=== PATIENT | female | born 1950 | race Caucasian/White ===

== ENCOUNTER 2016-04-30 14:49 | Inpatient (IN) | payer MEDICARE ==
--- NOTE | ~2016-04-30 | CN ---
Consultation Report [facility] [address] [place]. [address] NAME: WILFRED MENDOZA : 50 STATUS : ADM IN [facility]#: [id number] AGE: 65 ADM/REG DATE : 04/30/16 MR#: [id number] REPORT SERV DATE: 05/02/16 DICTATED BY: LANDEN LAGUNAS DATE: 05/02/16 REPORT STATUS : Draft TRANSCRIBED BY: MODL DATE: 05/02/16 CONSULTATION DATE OF CONSULTATION: 05/02/2016 CONSULTING GROUP: [facility]. SUBJECTIVE/CHIEF COMPLAINT: Hyperkalemia, PEA code 6:22 a.m., moved from IMCU to MICU in critical condition. HISTORY OF PRESENT ILLNESS: Ms. Mendoza is a 65-year-old female with worsening medical status starting from today, was admitted on 04/30/2016 and since that time, has developed bilateral infiltrates, had urine culture with greater than 100,000 gram-negative bacilli and then acute hyperkalemia, lactic acidosis, and cardiopulmonary arrest this morning at 6:22 a.m. Within the code, the patient received 5 epinephrine, 2 atropine, and two times bicarb and was also given insulin, D50, and calcium gluconate. Dr. Deshpande consulted me this morning for cardiopulmonary arrest, lactic acidosis, hyperkalemia management. The patient was made DNR with no escalation of care, but currently, she is ventilated and she is on Levophed and Dobutrex drips. An echocardiogram done today showed an EF of roughly 20%. Israel is in place, but there is no urine. I spoke with family at the bedside about her poor prognosis. Her pH on the latest blood gas was 6.95. Lactic acid level 17.8 and potassium 6.7, but we will have repeat labs done momentarily. PAST MEDICAL HISTORY: Crohn disease, status post AVR and MVR, hypertension, coronary artery disease, ischemic cardiomyopathy, COPD, and asthma. FAMILY HISTORY: Positive for diabetes, hypertension, coronary artery disease. SOCIAL HISTORY: Lives in [place]. A 45-[id number]-fnyq smoker. No alcohol use. REVIEW OF SYSTEMS: Positive for nausea and vomiting x1 week. Poor p.o. intake. EF of 20%. Unable to obtain further as the patient is obtunded. OBJECTIVE/PHYSICAL EXAMINATION: VITAL SIGNS: Temperature 97.3, pulse of 133, blood pressure 96/59. Intake 3300 and output 600, which is urine, but I think now she is making 0-10 mL. CMV ventilator settings with FiO2 of 100. GENERAL: Obtunded, critically ill. Minimal pain responses. EYES: Closed eyes. No conjunctivitis. ENT: Intubated. No facial droop. LYMPH: Large soft tissue mass in right neck area. No lymphadenopathy. SKIN: No rash or lesions. HEART: S1 and S2. Tachycardic. Decreased edema. LUNGS: Ventilated. Positive rhonchi. Consultation Report [address] [place]. [address] NAME: WILFRED MENDOZA : 50 STATUS : ADM IN [facility]#: [id number] AGE: 65 ADM/REG DATE : 04/30/16 MR#: [id number] REPORT SERV DATE: 05/02/16 DICTATED BY: LANDEN LAGUNAS DATE: 05/02/16 REPORT STATUS : Draft TRANSCRIBED BY: MODTraci DATE: 05/02/16 ABDOMEN: Soft and nontender. No bowel sounds. EXTREMITIES AND PSYCH: Sedated, obtunded, ventilated, critically ill. Israel with 0-10 mL of urine, dark colored. LABORATORY DATA: KUB showed NG tube in proper position. Chest x-ray shows diffuse bilateral infiltrates, right greater than left. CT abdomen and pelvis without contrast shows small right pleural effusion and potential acute colitis. ABG, pH is 6.95, pCO2 is 32, PO2 is 72, bicarbonate 6.9, 80% O2 saturation on FiO2 of 100. Cortisol 142.9. Troponin I 0.48. Ammonia 62. Procalcitonin 0.5. Lactic acid level 17.8. Sodium 134, potassium 6.7, chloride 95, bicarb 14, BUN 41, creatinine 1.17, glucose 70, calcium 8.0, magnesium 2.5, phosphorus 6.0. On arrival, her creatinine was 0.85. Albumin 2.2, T bilirubin 2.5, alkaline phosphatase 125, ALT 978, LDH 742, lipase 373, CPK 366, AST 1392. White count 9.5, hemoglobin 8.7, hematocrit 29.0, and platelets 113. On 04/30, her UA showed specific gravity of 1.019, pH of 5.0, 30 protein, 4.0 urobilinogen, moderate blood, moderate leukocytes, all else negative. ASSESSMENT AND PLAN: Ms. Mendoza is a 65-year-old female with gram-negative rods on urine culture yesterday, now appears in septic shock with combined cardiogenic shock. Her EF is only 20%. She has had history of ischemic cardiomyopathy. She had a PEA cardiopulmonary arrest today, most likely due to hyperkalemia, but could be some sepsis related. Lactic acidosis and respiratory arrest. Renal: The patient was treated for hyperkalemia medically. Bicarbonate x2 was given for acidosis. I agree with the current code status, which is DNR. No escalation of care. Treat with antibiotics, probably vancomycin and Zosyn at renal dose. Ventilator dependent, requiring pressors. She has a poor prognosis and family is aware of that. I spoke with Dr. Deshpande and will defer all current management and acute management to her. She is not a dialysis candidate, and repeat blood gas and labs will be obtained shortly. RG/MODL Landen Lagunas M.D. / [id number] CC: Araceli Avelar M.D.
--- NOTE | ~2016-04-30 | CN ---
Consultation Report [place] [address] [place]. [address] NAME: WILFRED MENDOZA : 50 STATUS : ADM IN PAT#: [id number] AGE: 65 ADM/REG DATE : 04/30/16 MR#: [id number] REPORT SERV DATE: 05/02/16 DICTATED BY: YOBANY SHELBY IV DATE: 05/02/16 REPORT STATUS : Draft TRANSCRIBED BY: AUGUSTO DATE: 05/02/16 DATE OF CONSULTATION: ADDENDUM: Critical care time seen is 0700 hours to 0830 hours and this does not include time for the code, intubation or central line placement. SHELBY/AUGUSTO Yobany Shelby IV, M.D. / [id number] CC: Araceli Avelar M.D.
--- NOTE | ~2016-04-30 | HP ---
History And Physical [place] [id number] [facility] [place]. [address] NAME: WILFRED MENDOZA : 50 STATUS : ADM IN [facility]#: [id number] AGE: 65 ADM/REG DATE : 04/30/16 MR#: [id number] REPORT SERV DATE: 05/01/16 DICTATED BY: LEROY CROSS DATE: 04/30/16 REPORT STATUS : Draft TRANSCRIBED BY: MODTraci DATE: 04/30/16 DATE OF ADMISSION: 04/30/2016 CHIEF COMPLAINT: Nausea and vomiting x1 week. HISTORY OF PRESENT ILLNESS: A 65-year-old white female with past medical history of Crohn disease, status post aortic valve and mitral valve replacement, on Coumadin and hypertension, presenting with nausea and vomiting x1 week. The patient states that she initially had nausea and vomiting about two episodes per day. The patient thought she had flu and decided not to come in initially. However, the patient continued to have nausea and vomiting x1 week to the point that she came to the ER for further evaluation and treatment. The patient denies any fevers and chills, chest pain, or shortness of breath. She does complain of the nausea and vomiting, but denies any hematemesis or hemoptysis. In addition, the patient denies any constipation or diarrhea as well as abdominal pain. In addition, the patient has not been able to take her medications for about one week due to nausea and vomiting. In addition, the patient denies taking her pain medications, although she tried to attempt to take pain med, but she unfortunately had continued nausea and vomiting. PAST MEDICAL HISTORY: As above. MEDICATION: 1. Coreg 6.25 mg p.o. b.i.d. 2. Celexa 10 mg p.o. at bedtime. 3. Plavix 75 mg p.o. daily. 4. Nexium 20 mg p.o. daily. 5. Lasix 10 mg p.o. daily. 6. Imdur 30 mg p.o. daily. 7. Nitroglycerin sublingual p.r.n. 8. Zofran 8 mg p.o. q.6 hours p.r.n. 9. Oxycodone 10/325 p.o. q.6 hours. 10.Afrin nasal spray two to three sprays every 12 hours p.r.n. 11.Potassium 10 mEq daily. 12.Coumadin 2 mg p.o. at bedtime. ALLERGIES: PROPOXYPHENE, TRAMADOL, AND KETOROLAC. SOCIAL HISTORY: Active smoker. Nondrinker. FAMILY HISTORY: Significant for diabetes, hypertension, coronary artery disease. REVIEW OF SYSTEMS: A 10-point review of systems conducted, which were negative except for above complaints. PHYSICAL EXAMINATION: VITAL SIGNS: Temperature of 98, pulse 84, respiratory rate 17, blood pressure 100/55, O2 saturation 99% on room air. History And Physical [address] [address] NAME: WILFRED MENDOZA : 50 STATUS : ADM IN [facility]#: [id number] AGE: 65 ADM/REG DATE : 04/30/16 MR#: [id number] REPORT SERV DATE: 05/01/16 DICTATED BY: LEROY CROSS DATE: 04/30/16 REPORT STATUS : Draft TRANSCRIBED BY: AUGUSTO DATE: 04/30/16 HEAD AND NECK: Normocephalic, atraumatic. Jaundiced-appearing pupils. CARDIOVASCULAR: S1, S2. Regular rate and rhythm. LUNGS: Good air entry. No wheeze, rales, or rhonchi. ABDOMEN: Soft, nontender, nondistended. EXTREMITIES: No clubbing, cyanosis, or edema. NEUROLOGICAL: Awake, alert, and oriented x3. Cranial nerves II through XII grossly intact. LABORATORY DATA: Sodium 120, potassium 5.1, chloride 89, bicarb 24, BUN 53, creatinine 1.1, glucose 107, and calcium 9.3. Total protein 8.4, albumin 3.7, globulin 4.7, total bilirubin 3.3. Alkaline phosphatase 150, ALT 1602, AST 1809. Lipase 373. WBC 9.5, hemoglobin 9.5, hematocrit 37.4, platelets 178. CT of the abdomen and pelvis shows small bilateral pleural effusion with bibasilar airspace consolidation concerning for pneumonia versus atelectasis. No evidence of biliary GI tract obstruction. Mild pelvic ascites and generalized body wall edema. Increased subcutaneous fat within the solorzano of the right colon and transverse colon, which may be due to prior inflammatory bowel disease. Rectum and sigmoid are decompressed. Potential acute cholelithiasis cannot be well evaluated through the distal colon. ASSESSMENT AND PLAN: 1. Nausea and vomiting secondary to unknown etiology. Due the fact that the patient has painless jaundice, rule out carcinoma. We will check also Tylenol, aspirin, and UDS. Also, we will order hepatitis panel due to the elevated ALT and AST. Questionable if the patient's elevated liver enzymes causing nausea vomiting. 2. Hyponatremia. Start the patient on normal saline at 80 mL an hour. 3. Aortic valve replacement and mitral valve replacement. The patient currently is on Coumadin. We will check PT and INR. We will have pharmacy to adjust dose. 4. Coronary artery disease. We will also check cardiac enzymes. The patient denies any chest pain, but due to the patient's history of coronary artery disease, we will check cardiac enzymes. 5. Gastrointestinal and deep venous thrombosis prophylaxis. We are going to check Coumadin levels as well as continue Nexium. FBJ/MODL Leroy Cross MD / [id number] CC: Ashu Falk
--- NOTE | ~2016-04-30 | DS ---
Discharge Summary [place] [address] [facility] [place] [address] NAME: WILFRED MENDOZA : 50 STATUS : ADM IN PAT#: [id number] AGE: 65 ADM/REG DATE : 04/30/16 MR#: [id number] REPORT SERV DATE: 05/02/16 DICTATED BY: KRYSTIAN DESHPANDE DATE: 05/02/16 REPORT STATUS : Draft TRANSCRIBED BY: MODL DATE: 05/02/16 ADMISSION DATE: 04/30/2016 DISCHARGE DATE: ADDENDUM: Correction is to a discharge summary I just did about 5 minutes ago on 05/02/2016 on this patient and that her time of needs to be corrected from 1250 hours to 1700 hours. Otherwise, everything else is the same. /AUGUSTO Krystian Deshpande M.D. / [id number] CC: Araceli Avelar M.D.
--- NOTE | ~2016-04-30 | CN ---
Consultation Report [facility] [address] [place]. [address] NAME: WILFRED MENDOZA : 50 STATUS : DIS IN PAT#: [id number] AGE: 65 ADM/REG DATE : 04/30/16 MR#: [id number] REPORT SERV DATE: 05/03/16 DICTATED BY: APOORVA SWANSON DATE: 05/01/16 REPORT STATUS : Draft TRANSCRIBED BY: MODTraci DATE: 05/01/16 CARDIOLOGY CONSULTATION DATE OF CONSULTATION: INDICATION: Elevated troponin, possible sepsis with hypotension, and elevated transaminases, underlying mechanical aortic valve on chronic Coumadin therapy. HISTORY: The patient is a 65-year-old white female, who had been in her usual health until three to four weeks ago. Prior to that time, her sister states a girlfriend of her son's, who is living in the same facility developed a gastroenteritis with nausea and vomiting. Four weeks ago, the patient began to experience anorexia. She was unable to take her medications. She began to experience nausea with vomiting occurring once or twice a week, increasing recently. She also over the past week has had increasing diarrhea. Her sister states, there have been times when she has profound abdominal discomfort causing her to bend over in pain. The evening prior to admission, she tried to take her evening medications with a bit of food. Around 11:30 p.m., she had profound nausea with vomiting. She presented to the emergency room for further evaluation. Her sister states, she has had no overt fever or chills. She has become more lethargic over the past two to three days. CURRENT HOME MEDICATIONS: Carvedilol 6.25 b.i.d., citalopram 10 per day, clopidogrel 75 q.a.m., omeprazole 20 q.a.m., furosemide 10 mg tablets two each morning, isosorbide mononitrate 30 mg q.a.m., nitroglycerin 0.4 p.r.n., ondansetron 8 mg q.6h p.r.n., oxycodone 10/325 p.o. four times a day, oxymetazoline spray, potassium, and warfarin as directed. ALLERGIES OR INTOLERANCES: Propoxyphene, tramadol, ketorolac. SOCIAL HISTORY: She is an active smoker. Does not ingest ethanol containing beverages. FAMILY HISTORY: She has a sister with diabetes mellitus. Father suddenly at age 51. Mother at age of 85 and had a history of hypertension with cardiac arrhythmias. Positive for diabetes, hypertension, coronary artery disease (she has a sister who has had MA, dyslipidemia, and cardiac arrhythmias). PAST MEDICAL HISTORY/REVIEW OF SYSTEMS: She has a history of an MA, 03/31/2003 with BMS x2 to the mid and distal LAD. She underwent 4-vessel CABG on 09/16/2011 and at that time, had a [place] E mechanical aortic valve placed. She is on warfarin therapy. She has a mixed hyperlipidemia as well as chronic anemia and a history of GERD. She underwent a KIARA on 01/28/2016 after a transthoracic echo suggested prosthetic valve stenosis. The KIARA showed a mean gradient of 15 mmHg, which is at the upper limits of normal for mechanical aortic prosthesis. She also has a mitral valve annuloplasty with stable ring confirmed. there was mild residual mitral regurgitation with a mean transmitral gradient of 3 mmHg. Pulmonary and tricuspid valves were normal. There was no evidence of intra-atrial shunt. The ascending aorta was normal in caliber. Overall, it was felt that the prosthetic valves Consultation Report [facility] [address] [facility] [place]. [address] NAME: WILFRED MENDOZA : 50 STATUS : DIS IN PAT#: [id number] AGE: 65 ADM/REG DATE : 04/30/16 MR#: [id number] REPORT SERV DATE: 05/03/16 DICTATED BY: APOORVA SWANSON DATE: 05/01/16 REPORT STATUS : Draft TRANSCRIBED BY: AUGUSTO DATE: 05/01/16 and valve repair function was reasonable. She did have a decreased LV systolic function with EF estimated at 40%. PHYSICAL EXAMINATION: GENERAL: Lethargic, ill-appearing 65-year-old white female. VITAL SIGNS: Blood pressure at 08:00 a.m., 100/72, pulse 87 and regular, respirations 19. SKIN: She has a slight icterus with a sallow appearance. HEENT: She is normocephalic. JVD is not elevated. CHEST: There are no overt crackles. CARDIAC: S1 normal, S2 crisp. There is a 2/6 systolic ejection murmur transmitted to the base and 1/6 holosystolic murmur transmitted to the axilla. ABDOMEN: Soft. Bowel sounds positive. EXTREMITIES: With trace edema. Pulses +1 and symmetric. NEUROLOGIC: No focal deficits. MUSCULOSKELETAL: No kyphosis. LABORATORY DATA: Potassium 5.6, BUN 55, creatinine of 0.94. ALT 1123, AST 1303, LDH 954, CPK 302. Troponins 0.12, bilirubin 3.2. White count of 10.3, hemoglobin 8.9, platelets 134,000. INR 2.6. IMPRESSION: A 65-year-old white female, with evidence for moderate systolic dysfunction, slight troponin elevation, likely related to increased metabolic demands, elevated transaminases, which may reflect a recent and ongoing infection. Clinically, she appears dehydrated, although hydration will have to be gentle given her decreased LV systolic function. She has a periprosthetic valve. We will mandate continued anticoagulation therapy if at all possible. We will continue to follow her with you, see recommendations. Note: There is no evidence for pancreatic abnormalities or overt liver abnormalities on the CT scan from 04/30/2016. MRI is pending. MARLEY/AUGUSTO Apoorva Swanson M.D. / [id number] CC: Consultation Report [address] [place]. [address] NAME: WILFRED MENDOZA : 50 STATUS : DIS IN PAT#: [id number] AGE: 65 ADM/REG DATE : 04/30/16 MR#: [id number] REPORT SERV DATE: 05/03/16 DICTATED BY: APOORVA SWANSON DATE: 05/01/16 REPORT STATUS : Draft TRANSCRIBED BY: AUGUSTO DATE: 05/01/16 Araceli Avelar M.D. [facility]
--- NOTE | ~2016-04-30 | CN ---
Consultation Report [facility] [address] [place]. [address] NAME: JESSIKA MENDOZA : 50 STATUS : ADM IN PAT#: [id number] AGE: 65 ADM/REG DATE : 04/30/16 MR#: [id number] REPORT SERV DATE: 05/01/16 DICTATED BY: CORNELIA STEEL DATE: 05/01/16 REPORT STATUS : Draft TRANSCRIBED BY: MODL DATE: 05/01/16 CONSULTATION DATE OF CONSULTATION: HISTORY OF PRESENT ILLNESS: Jessika Mendoza is a 65-year-old female, whom we are seeing private unattached for evaluation of elevated liver enzymes and nausea. This patient presents with nausea and vomiting for seven days. She denies any current abdominal pain. The history and physical states that she has a history of Crohn disease, but the patient denies Crohn disease. In fact, she denies any history of colonoscopy or EGD. The patient is rather lethargic now, so it is difficult to get history. I reviewed the chart as well as [facility]. The patient has had elevated liver enzymes and we were asked to see her. There is no prior history of liver disease. There is no history of any alcohol usage. PAST SURGICAL HISTORY: Aortic valve replacement, mitral valve replacement, coronary artery bypass grafting, left total hip replacement, partial hysterectomy, cholecystectomy, coronary artery disease with stents. SOCIAL HISTORY: She does smoke. She does not drink. OUTPATIENT MEDICATIONS: Coreg, Celexa, Plavix, Nexium 20 mg daily, Lasix, Imdur, Nitrostat, Zofran, Endocet, Afrin, potassium, Coumadin. ALLERGIES: TRAMADOL, TORADOL, PROPOXYPHENE. FAMILY HISTORY: Noncontributory. REVIEW OF SYSTEMS: Negative except noted as above. PHYSICAL EXAMINATION: GENERAL: She was oriented x4, in no acute distress, but lethargic. VITAL SIGNS: She is afebrile. Pulse is . HEENT: There is no scleral icterus. LUNGS: Clear. CARDIOVASCULAR: Revealed no S3, S4. No murmurs. ABDOMEN: Revealed active bowel sounds. Soft, nontender. No mass or organomegaly. LABORATORY DATA: White blood cell count 10,300, hemoglobin 8.9, platelet count 134,000. MCV 76. Potassium 5.6. Total bilirubin was 3.3 yesterday, it is 3.2 today. Alkaline phosphatase 150. ALT yesterday was 1602, is 1123 today. AST was 1809 yesterday, it is 1303 today. Iron percent pending. Hepatitis A, B, C pending. Ammonia level is slightly up at 36. INR was 15. Consultation Report [address] [place]. [address] NAME: JESSIKA MENDOZA : 50 STATUS : ADM IN PAT#: [id number] AGE: 65 ADM/REG DATE : 04/30/16 MR#: [id number] REPORT SERV DATE: 05/01/16 DICTATED BY: CORNELIA STEEL DATE: 05/01/16 REPORT STATUS : Draft TRANSCRIBED BY: AUGUSTO DATE: 05/01/16 CT scan without contrast shows no gallbladder, shows normal liver. There was increased submucosal fat around the terminal ileum and ascending colon. IMPRESSION: 1. Nausea, vomiting, diarrhea, consistent with gastroenteritis. 2. Dehydration. 3. Elevated liver enzymes, which are now decreasing. These could be due to some hypertension during her illness with some liver injury. 4. Elevated INR secondary to Coumadin, I doubt sepsis but it could also be due to some liver dysfunction. 5. Abnormal right colon on CT scan. 6. Microcytic anemia. RECOMMENDATION: 1. For now hydrate and follow liver enzymes as well as ammonia. 2. At some point, she will need a colonoscopy. 3. Check iron studies. Thanks for allowing us to assist in her care. ADDENDUM: 35 minutes were spent in evaluation of this patient. FABIÁN/AUGUSTO Cornelia Steel M.D. / [id number] CC: Ashu Falk LESLIE
--- NOTE | ~2016-04-30 | OP ---
[place] Of [place] [address] [place]. [address] NAME: WILFRED MENDOZA ARIC : 50 STATUS : ADM IN PAT#: [id number] AGE: 65 ADM/REG DATE : 04/30/16 MR#: [id number] REPORT SERV DATE: 05/02/16 DICTATED BY: YOBANY SHELBY IV DATE: 05/02/16 REPORT STATUS : Draft TRANSCRIBED BY: MODL DATE: 05/02/16 DATE OF PROCEDURE: 05/02/2016 REPORT TITLE: Laryngoscopic Intubation Note BODY AFTER REPORT TITLE: REASON: Cardiac arrest with inadequate respiratory effort after resuscitation. POSTOPERATIVE DIAGNOSIS: Cardiac arrest with inadequate respiratory effort after resuscitation. PROCEDURE: Laryngoscopic intubation, ventilator setup, and placement of orogastric tube. INDICATIONS: Status post cardiac arrest with inadequate respiratory effort. COMPLICATIONS: None. CONSENT: No consent was obtained as it is a life-saving procedure and the patient is a full code. PREOPERATIVE LABORATORIES: The platelet count was [id number]. GLASS CUT OFF TENDER: Yobany Shelby M.D. METHOD: The patient was flat in the bed and brought to the head of the bed. CPR had been in progress. She was Ambu bag ventilated during this period of time. After she was resuscitated, the patient continued to have poor inspiratory effort. Using a curved laryngoscopic blade, vocal cords were easily visualized. A 7.5 endotracheal tube was advanced on the first pass through the cords. There was appropriate color change on the CO2 indicator with bilateral breath sounds. The tube was secured. The patient had another short arrest and the tube was used during that resuscitation. There was good positioning on the chest x-ray which demonstrated right greater than left pulmonary infiltrates. VENTILATOR SETTINGS: CMV, tidal volume of 450 mL, rate of 14, PEEP of 5, FiO2 of 100%. There was no blood loss for that procedure. SHELBY/AUGUSTO Yobany Shelby IV, M.D. / [id number] [place] Of [place] [address] [place] [address] NAME: TOSIN MENDOZAENA CORBETT : 50 STATUS : ADM IN PAT#: [id number] AGE: 65 ADM/REG DATE : 04/30/16 MR#: [id number] REPORT SERV DATE: 05/02/16 DICTATED BY: YOBANY SHELBY IV DATE: 05/02/16 REPORT STATUS : Draft TRANSCRIBED BY: AUGUSTO DATE: 05/02/16 CC: Araceli Avelar M.D.
--- NOTE | ~2016-04-30 | CN ---
Consultation Report [facility] [address] [place]. [address] NAME: WILFRED MENDOZA : 50 STATUS : ADM IN [facility]#: [id number] AGE: 65 ADM/REG DATE : 04/30/16 MR#: [id number] REPORT SERV DATE: 05/02/16 DICTATED BY: YOBANY SHELBY IV DATE: 05/02/16 REPORT STATUS : Draft TRANSCRIBED BY: MODTraci DATE: 05/02/16 CRITICAL CARE CONSULT AND TRANSFER SERVICES DATE OF CONSULTATION: 05/02/2016 The patient was seen as part of a cardiac arrest. She is now status post resuscitation, intubation, and placement of a femoral line. History is obtained from the records and talking to the nurse. Ms. Mendoza is a 65-year-old female with a history of Crohn disease, tobacco dependency, valvular heart disease, hypertension, depression, coronary artery disease, and ischemic cardiomyopathy, who is now status post PEA arrest on the mechanical ventilator and requiring pressors. The patient was admitted on 04/30/2016 with nausea and vomiting for one week. Subsequently, Cardiology and Gastroenterology were both consulted. She was empirically placed on Levaquin and Flagyl. She had a marked coagulopathy with her Coumadin, which was on hold. She was being given oral vitamin K. The patient reportedly was slightly agitated and listless yesterday. She had marginal blood pressures overnight for which she received two 500 mL boluses of fluid. There were no complaints of chest pain either retrosternal or pleuritic. No abdominal pain. Then, the patient became more restless and the nurse was helping her up in bed when she became unresponsive. A code was called. Upon arrival, CPR was in progress. The patient had PEA arrest for which she was resuscitated after two rounds of medications. The patient was awaken enough to push us away and currently is in the intensive care unit. There is no witnessed aspiration. Her current studies are as noted below. PULMONARY HISTORY: Remarkable for no documented history of asthma, COPD, or previous pneumonia. She is an ongoing smoker by report a pack a day, which likely puts her about a [id number] smoking history. Her immunization status is not documented. PAST MEDICAL HISTORY: 1. Crohn disease. 2. Tobacco dependency. 3. Valvular heart disease, both aortic and mitral, status post replacement. 4. Hypertension. 5. Depression. 6. Coronary artery disease, status post stents. 7. Ischemic cardiomyopathy with a previous ejection fraction of 40%. The patient during this hospitalization also has coagulopathy, thrombocytopenia, and had significant elevations in her liver functions. PAST SURGICAL HISTORY: Includes cataract surgery, mitral and aortic valve replacement, partial hysterectomy, left total hip, and cardiac stents. ALLERGIES: LISTED ARE PROPOXYPHENE, TRAMADOL, AND KETOROLAC. MEDICATIONS: Celexa 10 mg daily, Coreg 6.25 mg twice a day, Coumadin per Pharmacy, Imdur 30 mg daily, Levaquin 750 mg daily, Flagyl 500 mg daily, Plavix 75 mg daily, Protonix 40 mg IV Consultation Report [address] [place]. [address] NAME: WILFRED MENDOZA : 50 STATUS : ADM IN [facility]#: [id number] AGE: 65 ADM/REG DATE : 04/30/16 MR#: [id number] REPORT SERV DATE: 05/02/16 DICTATED BY: YOBANY SHELBY IV DATE: 05/02/16 REPORT STATUS : Draft TRANSCRIBED BY: AUGUSTO DATE: 05/02/16 daily, and vitamin K. SOCIAL HISTORY: Remarkable for the tobacco use as above. There are no reports of alcohol or illicit drug use. FAMILY HISTORY: Remarkable for diabetes, hypertension, and coronary artery disease. REVIEW OF SYSTEMS: 14-systems reviewed and pertinent positives as noted above. PHYSICAL EXAMINATION: GENERAL: This is a chronically ill-appearing, thin female, appearing much older than her stated age. Currently not responsive. VITAL SIGNS: Temperature is 96.4, pulse is 134, respiratory rate is 16, saturations are 96% on the mechanical ventilator, and blood pressure is 90/52. HEENT: The patient is normocephalic, atraumatic. Pupils are dilated; however, she received atropine. There is no drainage from either nasal passages. She has upper dentures removed at time of her intubation. She has an orotracheal and orogastric tube in position. NECK: Without any palpable lymphadenopathy or thyromegaly. CHEST: The patient has inspiratory and expiratory rhonchi, right greater than left, with a prolonged expiratory phase. She also has a sternotomy scar over her chest. HEART: She has a distant tachycardic S1, S2 with no clear murmur or S3. Peripheral pulses are diminished. ABDOMEN: Soft. There are hypoactive bowel sounds. There is no palpable hepatosplenomegaly or masses. EXTREMITIES: Demonstrate no cyanosis, clubbing, or palpable cords. NEUROLOGIC: The patient was moving and extremities, currently is minimally responsive to even noxious stimuli. LABORATORY DATA: Chest x-ray demonstrates endotracheal tube and gastric tube in good position. There is increased infiltrate in the right greater than left lung. CBC: Hemoglobin 8.7, hematocrit 29.6, platelet count 113,000, white count is 9.5, indices are low. INR is 12.9, PTT is 50.2. Chemistry: Sodium is 134, potassium 6.7, chloride 95, bicarb 14, BUN 41, creatinine 1.17, glucose of 70. Bilirubin is now 2, alkaline phosphatase 125, ALT is 978, and AST is 1392. Troponin is 0.48 and a TSH is normal. Opiates were positive on presentation. ASSESSMENT AND PLAN: 1. Respiratory failure. The patient may have a component of underlying chronic obstructive pulmonary disease for she was given Dulera 5 puffs twice a day and DuoNebs. Ventilator settings were CMV, tidal volume of 450 mL, rate of 14, PEEP of 5, FiO2 of 100%. Blood gas will be obtained in 30 minutes and tomorrow. Chest x-ray will be obtained daily. 2. Infectious disease. The patient has increased infiltrates, possibly with aspiration. Consultation Report [address] [place]. [address] NAME: WILFRED MENDOZA : 50 STATUS : ADM IN [facility]#: [id number] AGE: 65 ADM/REG DATE : 04/30/16 MR#: [id number] REPORT SERV DATE: 05/02/16 DICTATED BY: YOBANY SHELBY IV DATE: 05/02/16 REPORT STATUS : Draft TRANSCRIBED BY: MODL DATE: 05/02/16 Flagyl and Levaquin will be discontinued. She will be started on Zosyn and vancomycin per Pharmacy. Further management depending on outcomes of the cultures. Urine antigen will be sent for Pneumococcus and Legionella. 3. Renal/electrolytes. The patient has acute acidosis. Bicarb drip has been ordered. We will repeat K this afternoon with improvement of the acidemia, and the patient will be given a dose of Kayexalate. 4. Neurologic. Habitrol patch for tobacco dependency. I do not think the patient is a hypothermia candidate secondary to her multiorgan dysfunction, her hemodynamic instability, and her coagulopathy. She will be given propofol as needed. B12 and folate level be obtained. 5. Endocrinologic. Steroids will be provided. Insulin sliding scale if required. 6. Gastrointestinal. The patient appears to have a shock liver. GI is following. Protonix will be continued. Hepatitis panel is pending. NG to low intermittent suction. 7. Cardiovascular. The patient had EKG changes with some J-point elevation. I have made Cardiology aware of this. She will be given Levophed and Klonopin. We need the echocardiogram that was performed yesterday. 8. Hematologic. FFP x4 doses. Bumex between the doses. No Coumadin. Pneumatic compression stockings for deep vein thrombosis prophylaxis. The patient was then moved to the ICU. The patient is in critical state. The daughter was made aware of her decompensation. SHELBY/ERNESTINAL Yobany Shelby IV, M.D. / [id number] CC: Araceli Avelar M.D.
--- NOTE | ~2016-04-30 | DS ---
Discharge Summary [facility] [address] [place]. [address] NAME: WILFRED MENDOZA : 50 STATUS : ADM IN [facility]#: [id number] AGE: 65 ADM/REG DATE : 04/30/16 MR#: [id number] REPORT SERV DATE: 05/02/16 DICTATED BY: KRYSTIAN DESHPANDE DATE: 05/02/16 REPORT STATUS : Draft TRANSCRIBED BY: MODL DATE: 05/02/16 ADMISSION DATE: 04/30/2016 DISCHARGE DATE: 05/02/2016 SUMMARY DATE OF : 05/02/2016. ADMISSION DIAGNOSES: 1. Nausea and vomiting secondary to unknown etiology. 2. Hyponatremia. 3. History of aortic valve replacement and mitral valve replacement. 4. Coronary artery disease. DISCHARGE DIAGNOSES: In addition to the above, 1. Ischemic cardiomyopathy. 2. Crohn disease. 3. Tobacco dependency. 4. Valvular heart disease, status post aortic and mitral valve replacement. 5. Pulseless electrical activity arrest. 6. Cardiogenic shock. 7. Acute kidney injury. 8. Coumadin toxicity. 9. Lactic acidosis. 10.Possible ischemic bowel. 11.Hyperkalemia, resolved. 12.Metabolic acidosis. HOSPITAL COURSE: This was a 65-year-old patient, who was initially admitted to the Hospitalist Service on 04/30/2016 with a chief complaint of nausea and vomiting of uncertain etiology. She was also seen by Dr. Steel of Gastroenterology because of elevated liver enzymes as well as elevated ammonia level. Colonoscopy was being plan once the patient stabilized and infection was ruled. On the morning of 05/02/2016, the patient went into PEA arrest. Cardiac code blue was called. She was seen by the Critical Care Service, intubated, and taken over to the MICU where central line was placed, and the patient was volume resuscitated and started on Levophed and dobutamine. For details of that part of her hospitalization, please see the consultation done by Dr. Shelby. As the day went on, an echocardiogram was obtained and showed significant decline in her left ventricular systolic function to 20% down from 40%. She continued to become worse. She persisted with her acidosis and was started on bicarbonate drip. Her INR was greater than 15, and so the patient was given vitamin K and fresh frozen plasma in an attempt to reverse her coagulopathy. Cultures were sent and the patient was then started on Zosyn and vancomycin. She remained unresponsive, but was too unstable for hypothermia protocol. Her blood pressure remained below 90 systolic despite maximum treatment with Levophed and dobutamine. She developed acute kidney injury, hyperkalemia which was addressed. Lactic acid level was 17 and did not come down with IV fluid resuscitation and pressors. Her condition was Discharge Summary [address] [address] NAME: WILFRED MENDOZA : 50 STATUS : ADM IN [facility]#: [id number] AGE: 65 ADM/REG DATE : 04/30/16 MR#: [id number] REPORT SERV DATE: 05/02/16 DICTATED BY: KRYSTIAN DESHPANDE DATE: 05/02/16 REPORT STATUS : Draft TRANSCRIBED BY: AUGUSTO DATE: 05/02/16 discussed with the patient's family at length and she was made a DNR. Supportive measures were continued throughout the morning; however, the patient continued to decline despite aggressive therapy. The patient's family was updated frequently. The patient finally became hypotensive, unresponsive to pressors, bradycardic, and then asystole and at 12:50 p.m. on 05/02/2016. /AUGUSTO Krystian Deshpande M.D. / [id number] CC: Araceli Avelar M.D.
--- NOTE | ~2016-04-30 | OP ---
Record Of Operation [facility] [address] [place]. [address] NAME: WILFRED MENDOZA : 50 STATUS : ADM IN [facility]#: [id number] AGE: 65 ADM/REG DATE : 04/30/16 MR#: [id number] REPORT SERV DATE: 05/02/16 DICTATED BY: YOBANY SHELBY IV DATE: 05/02/16 REPORT STATUS : Draft TRANSCRIBED BY: AUGUSTO DATE: 05/02/16 DATE OF PROCEDURE: 05/02/2016 PROCEDURE: Right femoral central venous catheter placement. PREOPERATIVE DIAGNOSIS: Critically ill patient with inactive IV access and coagulopathy. POSTOPERATIVE DIAGNOSIS: Critically ill patient with inactive IV access and coagulopathy. PROCEDURE: Placement of a right femoral central venous catheter. INDICATIONS: Critically ill patient with need for central access. CONTRAINDICATIONS: Coagulopathy, which is why the femoral area was chosen. CONSENT: No consent is obtained to lifesaving procedure and the patient was a full code and family is not immediately available. PREOPERATIVE LABORATORIES: Platelet count was 113,000. INR is 12.9. SUPERVISOR ELECTROLYTIC TINNING: Yobany Shelby M.D. METHOD: The patient was in the supine position. The right groin was prepped with chlorhexidine and sterilely draped. Using SonoSite unit with sterile technique, the femoral vein was localized. This sat just medial to the femoral artery; 3 mL of 1% lidocaine solution was used to anesthetize the skin. Small skin incision was made and the introducer needles advanced under ultrasound guidance into the vein. There was good blood flow, using the guidewires advanced without difficulty. Using modified Seldinger technique, the triple- lumen catheter was secured with sutures. There was good blood flow from all ports. It will now be used for resuscitation. Wasted blood was about 10 mL. The patient tolerated the procedure well. SHELBY/AUGUSTO Yobany Shelby IV, M.D. / [id number] CC: Araceli Avelar M.D.
[~2016-04-30 14:49] MED LIST: C1 PO; COREG12 PO; COREG6 PO; ENDOCET1 TA3 PO; IMDUR30 PO; KLOR-CON 1010 MEQ PO; L20 PO; LORTAB10 PO; LOVENOX60 SC; NEXIUM20 M1 PO; NITROSTAT0.4 MG SL; PLAVIX PO; PREV30 PO
[2016-04-30 15:22] LABS: HEMOGLOBIN 11.5 g/dL (12.0-16.0); MEAN CORPUS HGB CONC 30.7 g/dL (32.0-36.0); MEAN CORPUSCULAR HEMOGLOB 23.1 pg (26.0-34.0); MEAN CORPUSCULAR VOLUME 75.3 fL (80-100); PLATELET COUNT 178 10/3/uL (150-400); RBC DISTRIBUTION WIDTH 18.8 % (12.0-16.0); RED CELL COUNT 4.97 10/6/uL (4.0-5.6); WHITE BLOOD CELLS 9.5 10/3/uL (4.5-10.5)
[2016-04-30 15:30] LABS: HEMATOCRIT 37.4 % (36.0-48.0)
[2016-04-30 15:42] LABS: BUN (BLOOD UREA NITROGEN) 53 MG/DL (6-23); CALCIUM, SERUM 9.3 MG/DL (8.5-10.4); CHLORIDE, SERUM 89 MMOL/L (96-112); CO2 (CARBON DIOXIDE) 24 MMOL/L (24-34); GFR AFRICAN AMERICAN 61 ML/MIN (>=60); GFR NON AFRICAN AMERICAN 53 ML/MIN (>=60); GLUCOSE, SERUM 107 MG/DL (60-99); POTASSIUM, SERUM 5.1 MMOL/L (3.5-5.3); SGOT(AST) 1809 U/L (5-40); SGPT(ALT) 1602 U/L (5-65); SODIUM, SERUM 128 MMOL/L (135-148)
[2016-04-30 15:43] LABS: A/G RATIO 0.8 (0.7-1.9); ALBUMIN 3.7 G/DL (3.5-5.0); ALKALINE PHOSPHATASE 150 U/L (45-117); GLOBULIN 4.7 G/DL (2.5-4.1); TOTAL BILIRUBIN 3.3 MG/DL (0-1.2); TOTAL PROTEIN 8.4 G/DL (6.0-8.5)
[2016-04-30 16:14] LABS: DIFFERENTIAL ORDERED N
[2016-04-30] MEDS ORDERED: PLAVIX PO (16:50)
[2016-04-30] MEDS ORDERED: IMDUR30 PO (16:50)
[2016-04-30] MEDS ORDERED: COREG6 PO (16:50)
[2016-04-30] MEDS ORDERED: L20 PO (16:50)
[2016-04-30] MEDS ORDERED: NEXIUM20 M1 PO (16:51)
[2016-04-30] MEDS ORDERED: KLOR-CON 1010 MEQ PO (16:51)
[2016-04-30] MEDS ORDERED: ENDOCET1 TA3 PO (16:52)
[2016-04-30] MEDS ORDERED: NITROSTAT0.4 MG SL (16:54)
[2016-04-30] MEDS ORDERED: C2 PO (16:54)
[2016-04-30] MEDS ORDERED: AFRIN15 NAS (16:55)
[2016-04-30] MEDS ORDERED: ZOFRAN8 PO (16:55)
[2016-04-30] MEDS ORDERED: CELEXA10 PO (16:55)
[2016-05-01 04:26] LABS: CK-MB 6.6 NG/ML
[2016-05-01 04:41] LABS: CKMB INDEX (NOT ORD) 1.6; CPK 420 U/L (0-200)
[2016-05-01 04:42] LABS: TROPONIN I 0.12 NG/ML (<0.05)
[2016-05-01 06:24] LABS: ASCORBIC ACID (UR NOT ORDER) NEG (NEG); BILIRUBIN, URINE NEGATIVE (NEG); KETONE, URINE NEGATIVE (NEG); LEUKOCYTE ESTERASE(NOT OR MOD (NEG); NITRITE (URINE) NEG (NEG); WBC (NOT ORDERED) (RFLEX) 43 (0-5)
[2016-05-01 06:26] LABS: ER URINALYSIS TAT 0 Hrs 54 Mins
[2016-05-01 06:50] LABS: AMPHETAMINES (NOT ORD) NEG (NEG); BARBITURATES (NOT ORDERED NEG (NEG); BENZODIAZEPINES (NOT ORD) NEG (NEG); CANNABINOIDS (THC) NEG (NEG); COCAINE (NOT ORDERED) NEG (NEG); OPIATES POS (NEG); PHENCYCLIDINE(PCP) NEG (NEG); TRICYCLICS NEG (NEG)
[2016-05-01 07:40] LABS: BASOPHILS 0.1 %; BASOPHILS ABSOLUTE 0.01 10/3/uL (0.0-0.16); EOSINOPHILS 0 %; HEMATOCRIT 29.7 % (36.0-48.0); HEMOGLOBIN 8.9 g/dL (12.0-16.0); IMMATURE GRANULOCYTES 0.3 %; IMMATURE GRANULOCYTES ABSOLUTE 0.03 10/3/uL (0.0-0.11); LYMPHOCYTES ABSOLUTE 0.62 10/3/uL (0.67-4.30); MANUAL DIFF NO %; MEAN CORPUSCULAR HEMOGLOB 22.8 pg (26.0-34.0); MONOCYTES 12.4 %; MONOCYTES ABSOLUTE 1.28 10/3/uL (0.21-1.20); NEUTROPHILS 81.2 %; NEUTROPHILS ABSOLUTE 8.35 10/3/uL (2.02-8.40); PLATELET COUNT 134 10/3/uL (150-400); RBC DISTRIBUTION WIDTH 18.9 % (12.0-16.0); RED CELL COUNT 3.91 10/6/uL (4.0-5.6); WHITE BLOOD CELLS 10.3 10/3/uL (4.5-10.5)
[2016-05-01 07:45] LABS: A/G RATIO 0.8 (0.7-1.9); ALBUMIN 2.7 G/DL (3.5-5.0); ALKALINE PHOSPHATASE 108 U/L (45-117); BUN (BLOOD UREA NITROGEN) 55 MG/DL (6-23); CHLORIDE, SERUM 96 MMOL/L (96-112); CK-MB 6.5 NG/ML; CO2 (CARBON DIOXIDE) 21 MMOL/L (24-34); CREATININE 0.94 MG/DL (0.55-1.02); GAMMA GT 45 U/L (5-85); GFR AFRICAN AMERICAN 74 ML/MIN (>=60); GFR NON AFRICAN AMERICAN 64 ML/MIN (>=60); GLOBULIN 3.2 G/DL (2.5-4.1); GLUCOSE, SERUM 89 MG/DL (60-99); PHOSPHORUS, SERUM 3.1 MG/DL (2.5-4.5); POTASSIUM, SERUM 5.6 MMOL/L (3.5-5.3); SGOT(AST) 1303 U/L (5-40); SGPT(ALT) 1123 U/L (5-65); SODIUM, SERUM 131 MMOL/L (135-148); TOTAL BILIRUBIN 3.2 MG/DL (0-1.2); TOTAL PROTEIN 5.9 G/DL (6.0-8.5)
[2016-05-01 07:46] LABS: CKMB INDEX (NOT ORD) 2.2; CPK 302 U/L (0-200); TROPONIN I 0.12 NG/ML (<0.05)
[2016-05-01 07:51] LABS: BURR CELLS 1+ (3-10/OIF) (0-2/OIF); MACROCYTES 1+ (5-10/OIF) (0-5/OIF); PLATELET ESTIMATE SLT DEC (ADEQUATE); TARGET CELLS FEW (3-10/OIF) (0-1/OIF)
[2016-05-01 07:52] LABS: ELLIPTOCYTES 1+ (3-10/OIF) (0-2/OIF); SCHISTOCYTES OCC (0-2/OIF)
[2016-05-01 08:17] LABS: MAX AMP (AA) 50.8 MM (55-74); TEG ASPIRIN (AA) 31.8 % INHIB (<40)
[2016-05-01 10:53] LABS: DIRECT BILIRUBIN 1.8 MG/DL (0.0-0.4); INDIRECT BILIRUBIN(NOT ORDER) 1.4 MG/DL (0.1-0.9)
[2016-05-01 11:44] LABS: FIBRINOGEN 310 MG/DL (230-462)
[2016-05-01 11:52] LABS: ALCOHOL < 10 MG/DL (0); CK-MB 6.6 NG/ML; CKMB INDEX (NOT ORD) 2.1; CPK 309 U/L (0-200); TROPONIN I 0.14 NG/ML (<0.05)
[2016-05-01 11:53] LABS: ACETAMINOPHEN LEVEL (TYLENOL) 5.6 MCG/ML (10.0-20.0); SALICYLATE 2.4 MG/DL (-)
[2016-05-01 12:02] LABS: INTERNATIONAL NORMAL RATI > 15.0 UNITS (-); PROTIME (NOT ORD) > 120.0 SEC (12.0-14.5)
[2016-05-01 12:35] LABS: PROCALCITONIN 0.59 ng/mL (<0.5)
[2016-05-01 16:48] LABS: CK-MB 6.9 NG/ML
[2016-05-01 16:50] LABS: CKMB INDEX (NOT ORD) 1.9; TROPONIN I 0.12 NG/ML (<0.05)
[2016-05-02 05:21] LABS: BASOPHILS 0.2 %; BASOPHILS ABSOLUTE 0.02 10/3/uL (0.0-0.16); EOSINOPHILS 0 %; HEMATOCRIT 31.2 % (36.0-48.0); HEMOGLOBIN 9.3 g/dL (12.0-16.0); IMMATURE GRANULOCYTES 0.5 %; IMMATURE GRANULOCYTES ABSOLUTE 0.06 10/3/uL (0.0-0.11); LYMPHOCYTES 7.4 %; LYMPHOCYTES ABSOLUTE 0.95 10/3/uL (0.67-4.30); MEAN CORPUS HGB CONC 29.8 g/dL (32.0-36.0); MONOCYTES 13.8 %; MONOCYTES ABSOLUTE 1.77 10/3/uL (0.21-1.20); NEUTROPHILS 78.1 %; NUCLEATED RED BLOOD CELLS 10.1 /100WBC (0-0); PLATELET COUNT 101 10/3/uL (150-400); RBC DISTRIBUTION WIDTH 19.2 % (12.0-16.0); RED CELL COUNT 4.05 10/6/uL (4.0-5.6); WHITE BLOOD CELLS 12.8 10/3/uL (4.5-10.5)
[2016-05-02 05:22] LABS: MANUAL DIFF NO %
[2016-05-02 05:43] LABS: A/G RATIO 0.7 (0.7-1.9); ALBUMIN 2.3 G/DL (3.5-5.0); ALKALINE PHOSPHATASE 118 U/L (45-117); CALCIUM, SERUM 8.2 MG/DL (8.5-10.4); CHLORIDE, SERUM 98 MMOL/L (96-112); CREATININE 0.85 MG/DL (0.55-1.02); GFR AFRICAN AMERICAN 83 ML/MIN (>=60); GFR NON AFRICAN AMERICAN 72 ML/MIN (>=60); GLOBULIN 3.4 G/DL (2.5-4.1); GLUCOSE, SERUM 77 MG/DL (60-99); SODIUM, SERUM 129 MMOL/L (135-148); TOTAL PROTEIN 5.7 G/DL (6.0-8.5)
[2016-05-02 05:56] LABS: BUN (BLOOD UREA NITROGEN) 45 MG/DL (6-23); CO2 (CARBON DIOXIDE) 13 MMOL/L (24-34)
[2016-05-02 05:57] LABS: INDIRECT BILIRUBIN(NOT ORDER) 1.9 MG/DL (0.1-0.9); TOTAL BILIRUBIN 3.9 MG/DL (0-1.2)
[2016-05-02 05:59] LABS: HYPOCHROMIA 1+ (3-10/OIF) (0-2/OIF); PLATELET ESTIMATE SLT DEC (ADEQUATE); TARGET CELLS FEW (3-10/OIF) (0-1/OIF)
[2016-05-02 06:00] LABS: MICROCYTES 1+ (5-10/OIF) (0-5/OIF); POIKILOCYTOSIS 1+ (5-10/OIF) (0-5/OIF); SCHISTOCYTES OCC (0-2/OIF)
[2016-05-02 06:38] LABS: SGOT(AST) 1568 U/L (5-40); SGPT(ALT) 1259 U/L (5-65)
[2016-05-02 07:18] LABS: INTERNATIONAL NORMAL RATI 13.3 UNITS (-); PROTIME (NOT ORD) 98.8 SEC (12.0-14.5)
[2016-05-02 07:28] LABS: BASOPHILS 0.3 %; BASOPHILS ABSOLUTE 0.03 10/3/uL (0.0-0.16); EOSINOPHILS 0 %; HEMATOCRIT 29.6 % (36.0-48.0); HEMOGLOBIN 8.7 g/dL (12.0-16.0); IMMATURE GRANULOCYTES 0.8 %; IMMATURE GRANULOCYTES ABSOLUTE 0.08 10/3/uL (0.0-0.11); LYMPHOCYTES 18.3 %; LYMPHOCYTES ABSOLUTE 1.74 10/3/uL (0.67-4.30); MEAN CORPUS HGB CONC 29.4 g/dL (32.0-36.0); MEAN CORPUSCULAR VOLUME 78.1 fL (80-100); MONOCYTES ABSOLUTE 0.48 10/3/uL (0.21-1.20); NEUTROPHILS 75.6 %; PLATELET COUNT 113 10/3/uL (150-400); RBC DISTRIBUTION WIDTH 19.2 % (12.0-16.0); RED CELL COUNT 3.79 10/6/uL (4.0-5.6); WHITE BLOOD CELLS 9.5 10/3/uL (4.5-10.5)
[2016-05-02 07:29] LABS: MANUAL DIFF NO %
[2016-05-02 07:34] LABS: PARTIAL THROMBO TIME 50.2 SEC (22.5-37.2)
[2016-05-02 07:36] LABS: INTERNATIONAL NORMAL RATI 12.9 UNITS (-); PROTIME (NOT ORD) 96.5 SEC (12.0-14.5)
[2016-05-02 07:44] LABS: ANISOCYTOSIS 1+ (5-10/OIF) (0-5/OIF); BURR CELLS 1+ (3-10/OIF) (0-2/OIF); MICROCYTES 1+ (5-10/OIF) (0-5/OIF); PLATELET ESTIMATE SLT DEC (ADEQUATE); POIKILOCYTOSIS 1+ (5-10/OIF) (0-5/OIF)
[2016-05-02 07:48] LABS: A/G RATIO 0.7 (0.7-1.9); ALBUMIN 2.2 G/DL (3.5-5.0); ALKALINE PHOSPHATASE 125 U/L (45-117); CHLORIDE, SERUM 95 MMOL/L (96-112); CREATININE 1.17 MG/DL (0.55-1.02); GFR AFRICAN AMERICAN 57 ML/MIN (>=60); GFR NON AFRICAN AMERICAN 49 ML/MIN (>=60); GLUCOSE, SERUM 70 MG/DL (60-99); SGOT(AST) 1392 U/L (5-40); SGPT(ALT) 978 U/L (5-65); SODIUM, SERUM 134 MMOL/L (135-148); TOTAL BILIRUBIN 3.5 MG/DL (0-1.2); TOTAL PROTEIN 5.2 G/DL (6.0-8.5)
[2016-05-02 07:51] LABS: BUN (BLOOD UREA NITROGEN) 41 MG/DL (6-23); CO2 (CARBON DIOXIDE) 14 MMOL/L (24-34); POTASSIUM, SERUM 6.7 MMOL/L (3.5-5.3); TROPONIN I 0.48 NG/ML (<0.05)
[2016-05-02 09:14] LABS: CARBOXYHEMOGLOBIN 1.3 % (0-3); HCO3 (ACTUAL BICARBONATE) 6.9 MEQ/L (23-27); HEMOBLOGIN CONTENT 10.2 G/DL (12-16); INSTRUMENT SERIAL # 8083; METHEMOGLOBIN 0.3 % (0-3); O2 CONTENT 11.5 VOL% (18-24); PCO2 (CO2 TENSION) 32 MMHG (35-45); PO2 (O2 TENSION) 72 MMHG (79-93); pH 6.95 (7.37-7.43)
[2016-05-02 09:15] LABS: MODE CMV; SAMPLE Arterial; TIDAL VOLUME 450 ML
[2016-05-02 10:08] LABS: FOLATE 9.7 NG/ML (>5.2); IRON BINDING CAPACITY 357 MCG/DL (225-410); IRON, SERUM 25 MCG/DL (35-150)
[2016-05-02 13:24] LABS: BE (BASE EXCESS) -12.3 MEQ/L (0 +/- 2.5); CARBOXYHEMOGLOBIN 0.8 % (0-3); HCO3 (ACTUAL BICARBONATE) 16.5 MEQ/L (23-27); HEMOBLOGIN CONTENT 8.6 G/DL (12-16); INSTRUMENT SERIAL # 8083; METHEMOGLOBIN 1.7 % (0-3); MODE CMV; O2 CONTENT 2.9 VOL% (18-24); PCO2 (CO2 TENSION) 52 MMHG (35-45); PO2 (O2 TENSION) 22 MMHG (79-93); SAMPLE Arterial; TIDAL VOLUME 450 ML; pH 7.12 (7.37-7.43)
[2016-05-02 13:35] LABS: BE (BASE EXCESS) -13.3 MEQ/L (0 +/- 2.5); CARBOXYHEMOGLOBIN 1.6 % (0-3); HCO3 (ACTUAL BICARBONATE) 13.8 MEQ/L (23-27); HEMOBLOGIN CONTENT 9.1 G/DL (12-16); INSTRUMENT SERIAL # 8083; METHEMOGLOBIN 0.3 % (0-3); MODE CMV; O2 CONTENT 10.4 VOL% (18-24); PCO2 (CO2 TENSION) 36 MMHG (35-45); PO2 (O2 TENSION) 59 MMHG (79-93); SAMPLE Arterial; TIDAL VOLUME 450 ML
[2016-05-02 13:40] LABS: HEMATOCRIT 28.5 % (36.0-48.0); HEMOGLOBIN 8.4 g/dL (12.0-16.0); MEAN CORPUS HGB CONC 29.5 g/dL (32.0-36.0); MEAN CORPUSCULAR HEMOGLOB 23.5 pg (26.0-34.0); MEAN CORPUSCULAR VOLUME 79.6 fL (80-100); NUCLEATED RED BLOOD CELLS 19.6 /100WBC (0-0); PLATELET COUNT 76 10/3/uL (150-400); RBC DISTRIBUTION WIDTH 19.7 % (12.0-16.0); RED CELL COUNT 3.58 10/6/uL (4.0-5.6); WHITE BLOOD CELLS 15.1 10/3/uL (4.5-10.5)
[2016-05-02 13:41] LABS: MANUAL DIFF YES %
[2016-05-02 13:48] LABS: INTERNATIONAL NORMAL RATI > 15.0 UNITS (-); PROTIME (NOT ORD) > 120.0 SEC (12.0-14.5)
[2016-05-02 13:50] LABS: CALCIUM, SERUM 7.7 MG/DL (8.5-10.4); CHLORIDE, SERUM 91 MMOL/L (96-112); CREATININE 1.34 MG/DL (0.55-1.02); GFR AFRICAN AMERICAN 48 ML/MIN (>=60); GFR NON AFRICAN AMERICAN 41 ML/MIN (>=60); GLUCOSE, SERUM 75 MG/DL (60-99); PHOSPHORUS, SERUM 5.5 MG/DL (2.5-4.5); SODIUM, SERUM 134 MMOL/L (135-148)
[2016-05-02 13:51] LABS: BUN (BLOOD UREA NITROGEN) 45 MG/DL (6-23); CO2 (CARBON DIOXIDE) 19 MMOL/L (24-34); POTASSIUM, SERUM 4.6 MMOL/L (3.5-5.3)
[2016-05-02 13:53] LABS: BAND NEUTROPHILS 6 %; LYMPHOCYTES 2 %; MONOCYTES 4 %; NEUTROPHILS ABSOLUTE (CALC) 14.19 10/3/uL (2.02-8.40); SEGMENTED NEUTROPHIL (0) 88 %; TOTAL NUCLEATED CELLS 100
[2016-05-02 13:54] LABS: ELLIPTOCYTES 1+ (3-10/OIF) (0-2/OIF); HYPOCHROMIA 1+ (3-10/OIF) (0-2/OIF); PLATELET ESTIMATE DEC (ADEQUATE); SCHISTOCYTES FEW (3-10/OIF); TARGET CELLS FEW (3-10/OIF) (0-1/OIF)
[2016-05-02 14:52] LABS: TROPONIN I 3.51 NG/ML (<0.05)
[2016-05-02 15:31] LABS: ASCORBIC ACID (UR NOT ORDER) NEG (NEG); BILIRUBIN, URINE NEGATIVE (NEG); KETONE, URINE NEGATIVE (NEG); LEUKOCYTE ESTERASE(NOT OR SMALL (NEG); WBC (NOT ORDERED) (RFLEX) 126 (0-5)
[2016-05-03 07:26] LABS: SMEAR FOR ABNORMAL CELLS SEE PATHOLOGY REPORT
[2016-05-03 09:57] LABS: HEPATITIS B SURFACE ANTIGEN NON-REACTIVE (NON-REACT)
[2016-05-03 10:24] LABS: HEPATITIS C ANTIBODY NON-REACTIVE (NON-REACT)
[2016-05-03 10:25] LABS: HEPATITIS B CORE AB IGM NON-REACTIVE (NON-REAC)
[2016-05-03 10:26] LABS: HEP A ANTIBODY IGM NON-REACTIVE (NON-REACT)
== END 2016-05-02 19:30 | disposition expired | DRG 391 ==
LOC: ER 14:49 → 5SO 19:52 → IMCU 05-01 09:54 → MIC 05-02 06:52
PROVIDERS: Emergency Medicine; Hospitalist; Internal Medicine; Internal Medicine Critical Care Medicine; Internal Medicine Pulmonary Disease
DX: K52.9 Noninfective gastroenteritis and colitis, unspecified (principal); K72.00 Acute and subacute hepatic failure without coma; A41.89 Other specified sepsis; I46.9 Cardiac arrest, cause unspecified; J96.00 Acute respiratory failure, unspecified whether with hypoxia or hypercapnia; E87.2 Acidosis; D68.9 Coagulation defect, unspecified; R65.21 Severe sepsis with septic shock; K55.039 Acute (reversible) ischemia of large intestine, extent unspecified; N17.9 Acute kidney failure, unspecified; E87.1 Hypo-osmolality and hyponatremia; K50.90 Crohn's disease, unspecified, without complications; N39.0 Urinary tract infection, site not specified; R57.0 Cardiogenic shock; I25.10 Atherosclerotic heart disease of native coronary artery without angina pectoris; I25.5 Ischemic cardiomyopathy; F17.210 Nicotine dependence, cigarettes, uncomplicated; E86.0 Dehydration; E87.5 Hyperkalemia; Z95.2 Presence of prosthetic heart valve; Z79.02 Long term (current) use of antithrombotics/antiplatelets; Z79.899 Other long term (current) drug therapy; Z88.8 Allergy status to other drugs, medicaments and biological substances; T45.515A Adverse effect of anticoagulants, initial encounter; Z66 Do not resuscitate; Z83.3 Family history of diabetes mellitus; Z82.49 Family history of ischemic heart disease and other diseases of the circulatory system; J44.9 Chronic obstructive pulmonary disease, unspecified; D50.9 Iron deficiency anemia, unspecified
CPT/HCPCS: 36415; 71010; 74000; 74176; 80048; 80053; 80069; 80074; 80305; 80307; 81001; 82140; 82247; 82248; 82330; 82533; 82550; 82553; 82607; 82746; 82803; 82805; 82947; 82962; 82977; 83010; 83540; 83550; 83605; 83615; 83690; 83735; 84100; 84132; 84145; 84295; 84443; 84484; 85007; 85014; 85025; 85027; 85384; 85576-59; 85610; 85730; 86850; 86900; 86901; 87040; 87070; 87077; 87086; 87186; 87205; 87449; 87641; 92950; 93005; 94002; 94640; 96374; 99285; A9270-GY; C1894; C8929; C9113; G0480; J0610; J1720; J1956; J2405; J2543; J3370; P9059; Q9957